=== PATIENT | female | born 1985 | race African-American/Black ===

== ENCOUNTER 2024-06-02 20:20 | Inpatient (IN) | payer OTHER, MEDICAID, MEDICARE ==
[~2024-06-02] VITALS: Ht 165.1 cm; Wt 59.2 kg
[2024-06-02] MEDS: MAGNESIUM 2 G PREMIX 50 ML IV STA (21:06)
[2024-06-02] MEDS ORDERED: ALBUTEROL (0.083%) 2.5MG/3ML NEB HHN STA (21:06)
[2024-06-02] MEDS ORDERED: IPRATROPIUM BROMIDE (0.02%) 0.5MG/2.5ML NEB HHN STA (21:06)
[2024-06-02 21:32] LABS: HEMATOCRIT. 45.4 % (36.0-48.0); HEMOGLOBIN. 14.1 g/dL (12.0-16.0); MEAN CORPUSCULAR HEMOGLOBIN 29.8 pg (28.0-32.0); MEAN CORPUSCULAR HGB CONC 31.1 g/dL (31.0-37.0); MEAN CORPUSCULAR VOLUME 95.9 fL (81.0-99.0); PLATELET 125 x1000/uL (130-400); RED BLOOD CELL COUNT 4.73 mill/uL (4.2-5.4); RED CELL DISTRIBUTION WIDTH 18.5 % (11.6-14.6); WHITE BLOOD COUNT 2.5 x1000/uL (4.5-11.0)
[2024-06-02 21:34] LABS: DIFFERENTIAL COMMENT 1
[2024-06-02 21:40] LABS: CHLORIDE 101 mEq/L (98-107); SODIUM 142 mEq/L (136-145)
[2024-06-02 21:41] LABS: CALCIUM 10.7 mg/dL (8.7-10.4); CARBON DIOXIDE 25 mEq/L (21-32)
[2024-06-02 21:46] LABS: GLUCOSE 141 mg/dL (70-105); HCG SCREEN INDETERMINATE; UREA NITROGEN BLOOD 33 mg/dL (9-23)
[2024-06-02] MEDS: METHYLPREDNISOLONE SOD SUCC 125MG/2ML (ACT-O-VIAL) IV STA (21:46)
[2024-06-02 21:48] LABS: ALANINE AMINOTRANSFERASE < 7 IU/L (10-49); ALBUMIN 4.1 g/dL (3.2-4.8); ASPARTATE AMINOTRANSFERASE 12 IU/L (<34)
[2024-06-02 21:49] LABS: BILIRUBIN TOTAL 0.2 mg/dL (0.1-1.0); PROTEIN TOTAL 6.7 g/dL (6.0-8.3)
[2024-06-02 21:52] LABS: PLATELET ESTIMATE NORMAL
[2024-06-02 21:56] LABS: BILIRUBIN DIRECT < 0.1 mg/dL (<=3.0); CREATININE 6.3 mg/dL (0.6-1.0); TROPONIN I HIGH SENSITIVITY 42 ng/L (3.0-34)
[2024-06-02] MEDS: MORPHINE SULFATE 4 MG/ML INJ (FOR IV/IM USE) IV ONE (22:28)
[2024-06-02] MEDS: ASPIRIN 325MG EC TABLET PO ONE (22:28)
[2024-06-02] MEDS: PIPERACILLIN/TAZO 3.375G/50ML 50 ML IV NR (22:28)
[2024-06-02] MEDS: SODIUM CHLORIDE 0.9% (SEPSIS BOLUS) IV NR (22:58)
[2024-06-02] MEDS: AZITHROMYCIN 500MG/250ML 250 ML IV NR (23:37)
[2024-06-03] VITALS (7 sets, daily range): BP systolic 93–139; BP diastolic 60–86; PULSE 74–100; RESP 18–22; TEMP 36.2512–36.72516; O2SAT 95–100
[2024-06-03 00:49] LABS: LACTIC ACID 2.1 mmol/L (0.4-2.0)
[2024-06-03] MEDS: SODIUM CHLORIDE 0.9% (SEPSIS BOLUS) IV NR (01:41)
[2024-06-03] MEDS: ONDANSETRON HCL 4MG/2ML INJ IV NR (01:42)
[2024-06-03 02:29] LABS: PROTHROMBIN TIME 11.4 sec (9.6-11.0)
[2024-06-03] MEDS: VANCOMYCIN 1G PREMIX 200 ML IV NR (02:37)
[2024-06-03] MEDS: MORPHINE SULFATE 4 MG/ML INJ (FOR IV/IM USE) IV PRN (02:37)
[2024-06-03] MEDS ORDERED: ENOXAPARIN 80MG/0.8ML SYR SUBCUT NR (02:45)
[2024-06-03] MEDS ORDERED: ALBU10.7 (05:23)
[2024-06-03] MEDS ORDERED: ASPI-1406 (05:23)
[2024-06-03] MEDS ORDERED: INSU100I28 SQ (05:23)
[2024-06-03] MEDS ORDERED: PROMETHAZINE/DEXTROMETHORPHAN 6.25-15MG/5ML PO PRN (05:30)
[2024-06-03] MEDS ORDERED: CLONIDINE 0.1MG TABLET PO PRN (05:30)
[2024-06-03] MEDS ORDERED: DIPHENHYDRAMINE 50MG/ML VIAL IV PRN (05:30)
[2024-06-03] MEDS ORDERED: IPRATROPIUM/ALBUTEROL 0.5-3(2.5)MG/3ML NEB HHN PRN (05:30)
[2024-06-03] MEDS ORDERED: DEXTROSE 50% WATER 50ML SYRINGE IV PRN (05:30)
[2024-06-03] MEDS ORDERED: ZOLPIDEM TARTRATE 5MG TABLET PO PRN (05:30)
[2024-06-03] MEDS ORDERED: ACETAMINOPHEN 325MG TABLET PO PRN (05:30)
[2024-06-03] MEDS: SODIUM CHLORIDE 0.9% 3ML FLUSH IVF SCH (06:06)
[2024-06-03] MEDS: BLOOD SUGAR DIAGNOSTIC STRIP TEST SCH (07:12)
[2024-06-03] MEDS: FOLIC ACID/VITAMIN B COMP W-C TABLET PO SCH (10:19)
[2024-06-03] MEDS: SEVELAMER CARBONATE 800 MG TABLET PO SCH (10:20)
[2024-06-03] MEDS: GUAIFENESIN 600MG ER TABLET PO SCH (10:20)
[2024-06-03] MEDS: INSULIN LISPRO 100 UNITS/ML SUBCUT SCH (11:43)
[2024-06-03] MEDS: IPRATROPIUM/ALBUTEROL 0.5-3(2.5)MG/3ML NEB HHN SCH (13:30)
[2024-06-03 13:43] LABS: HEPATITIS B SURFACE ANTIGEN NEGATIVE (Negative)
[2024-06-03 14:03] LABS: HEPATITIS A AB IGM NEGATIVE (Negative)
[2024-06-03 14:04] LABS: HEPATITIS B CORE AB IGM NEGATIVE (Negative); HEPATITIS C AB NON REACTIVE (Neg) (Negative)
[2024-06-03] MEDS: CEFTRIAXONE 1GM/50ML 50 ML IV SCH (20:24)
[2024-06-03] MEDS: ACETAMINOPHEN 325MG TABLET PO PRN (20:37)
[2024-06-03] MEDS: AZITHROMYCIN 500MG/250ML 250 ML IV SCH (22:02)
[2024-06-03] MEDS: ONDANSETRON HCL 4MG/2ML INJ IV PRN (22:49)
[2024-06-04] VITALS (15 sets, daily range): BP systolic 108–162; BP diastolic 60–98; PULSE 75–133; RESP 18–22; TEMP 36.44736–39.28092; O2SAT 95–99
[2024-06-04] MEDS: LORATADINE 10MG TABLET PO SCH (15:21)
[2024-06-04] MEDS: BUDESONIDE 0.5MG/2ML NEB HHN SCH (15:22)
[2024-06-04 16:23] LABS: CHLORIDE 97 mEq/L (98-107); POTASSIUM 4.3 mEq/L (3.5-5.1); SODIUM 136 mEq/L (136-145)
[2024-06-04 16:24] LABS: CARBON DIOXIDE 25 mEq/L (21-32)
[2024-06-04 16:55] LABS: HEMATOCRIT 40.1 % (36.0-48.0); HEMOGLOBIN 12.4 g/dL (12.0-16.0); MEAN CORPUSCULAR HEMOGLOBIN 29.7 pg (28.0-32.0); MEAN CORPUSCULAR VOLUME 95.7 fL (81.0-99.0); PLATELET 123 x1000/uL (130-400); RED BLOOD CELL COUNT 4.19 mill/uL (4.2-5.4); RED CELL DISTRIBUTION WIDTH 18.1 % (11.6-14.6); WHITE BLOOD COUNT 3.1 x1000/uL (4.5-11.0)
[2024-06-04] MEDS: MONTELUKAST SODIUM 10MG TABLET PO SCH (17:57)
[2024-06-04] MEDS: VANCOMYCIN 1G PREMIX 200 ML IV NR (20:00)
[2024-06-04] MEDS: FAMOTIDINE 20MG TABLET PO SCH (21:18)
[2024-06-04] MEDS ORDERED: NALOXONE HCL 0.4MG/ML VIAL IV PRN (22:45)
[2024-06-05] VITALS (9 sets, daily range): BP systolic 106–156; BP diastolic 71–102; PULSE 110–132; RESP 18–26; TEMP 36.50292–37.33632; O2SAT 95–99
[2024-06-05] MEDS: CARVEDILOL 3.125 MG TABLET PO SCH (04:17)
[2024-06-05] MEDS: VANCOMYCIN 500MG/100ML IV NR (10:00)
== END 2024-06-05 20:31 | disposition short-term general hospital (02) | DRG 871 ==
LOC: ER 20:20 → 7WST 06-03 00:01 → EDBEDREQTM 06-03 01:22 → EDBEDREQ 06-03 01:22 → EDBEDREQDT 06-03 01:22
PROVIDERS: ADMIT Internal Medicine; ATTEND Internal Medicine
PROC: 5A1D70Z Performance of Urinary Filtration, Intermittent, Less than 6 Hours Per Day (ICD-10-PCS; principal; 2024-06-04)
DX: A41.9 Sepsis, unspecified organism (principal); J18.9 Pneumonia, unspecified organism; N18.6 End stage renal disease; J96.21 Acute and chronic respiratory failure with hypoxia; I13.2 Hypertensive heart and chronic kidney disease with heart failure and with stage 5 chronic kidney disease, or end stage renal disease; J45.901 Unspecified asthma with (acute) exacerbation; J91.8 Pleural effusion in other conditions classified elsewhere; E78.00 Pure hypercholesterolemia, unspecified; D64.9 Anemia, unspecified; E11.22 Type 2 diabetes mellitus with diabetic chronic kidney disease; I50.9 Heart failure, unspecified; Z86.73 Personal history of transient ischemic attack (TIA), and cerebral infarction without residual deficits; Z99.2 Dependence on renal dialysis; Z99.81 Dependence on supplemental oxygen; Q89.9 Congenital malformation, unspecified
CPT/HCPCS: 36415; 71045; 74176; 76604; 76705; 76830; 76856; 80048; 80051; 80076; 82962; 83036; 83605; 83880; 84145; 84484; 84702; 84703; 85025; 85027; 86705; 86709; 87340; 90935; 93005; 94070; 94640; 94664; 94760; 99291; A4606; C1893; J0456; J0696; J1815; J2270; J2405; J2543; J2919; J3370; J3475; J7626